=== PATIENT | female | born 1935 | race Caucasian/White ===

== ENCOUNTER → 2016-04-08 | Outpatient (CLI) | payer OTHER ==
[~2016-04-08] MED LIST: ALEVE220 MG PO; HYDROCHLOROTHIA25 MG PO; MULTI VITAMIN1 EACH PO
== END | disposition home or self-care (01) ==
LOC: CDC 14:17
DX: Z01.810 Encounter for preprocedural cardiovascular examination (principal)
CPT/HCPCS: 93000

== ENCOUNTER 2016-04-16 07:57 | Day surgery (SDC) | payer OTHER ==
[~2016-04-16] VITALS: Ht 157.5 cm; Wt 72.5 kg
[2016-04-16 09:08] VITALS: BP 181/79
[2016-04-16 12:12] VITALS: BP 164/77
[2016-04-16 12:55] VITALS: BP 169/74
== END 2016-04-16 13:06 | disposition home or self-care (01) ==
LOC: SDC 07:57
PROC: 0JBG3ZZ Excision of Right Lower Arm Subcutaneous Tissue and Fascia, Percutaneous Approach (ICD-10-PCS; principal; 2016-04-16)
DX: L90.5 Scar conditions and fibrosis of skin (principal); M19.90 Unspecified osteoarthritis, unspecified site; Z87.891 Personal history of nicotine dependence
CPT/HCPCS: 88305; J0690; J3010

== ENCOUNTER 2017-01-05 17:10 | Emergency (ER) | payer OTHER ==
[~2017-01-05] VITALS: Ht 154.9 cm; Wt 72.7 kg
[2017-01-05 18:24] LABS: HEMATOCRIT 35.2 % (36.0-46.0); MCH 28.9 PG (29.0-34.0); MCV 87.6 FL (83-99); MEAN PLAT.VOLUME 9.7 uM^3 (9.5-12.4); PLATELET COUNT 173 K/uL (156-360); RBC DIS.WIDTH-CV 13.1 % (11.8-14.6); RBC DIS.WIDTH-SD 42.4 % (39-53); RED BLOOD COUNT 4.02 M/uL (3.80-5.20); WHITE BLOOD COUNT 15.8 K/uL (4.1-10.2)
[2017-01-05 18:35] LABS: CHLORIDE 99 mEq/L (99-109); POTASSIUM 3.1 mEq/L (3.7-5.4)
[2017-01-05 18:38] LABS: ANION GAP 13 MEQ/L (2-14)
[2017-01-05 18:40] LABS: GFR ESTIMATE (CALCULATED) 51 mL/min/
[2017-01-05 18:41] LABS: UREA NITROGEN (BUN) 32 mg/dL (9-23)
[2017-01-05 18:43] LABS: GLUCOSE 110 mg/dL (70-99); SODIUM 135 mEq/L (136-147)
[2017-01-05 18:48] LABS: ADD MIUA? YES; BILIRUBIN SMALL; BLOOD NEGATIVE; COLOR AMBER ((YELLOW)); GLUCOSE (STRIP) NEGATIVE; KETONES NEGATIVE; LEUKOCYTES MODERATE; NITRITE NEGATIVE; PROTEIN (STRIP) 30; SPECIFIC GRAVITY 1.025 (1.000-1.030); UROBILINOGEN 0.2 MG/DL (0.2-1.0)
[2017-01-05 18:54] LABS: BACTERIA NONE SEEN /HPF; EPITHELIAL CELLS RARE /HPF; GRANULAR CASTS 0-5 /LPF; HYALINE CASTS 0-5 /LPF; MUCUS TRACE /LPF; RED BLOOD CELLS 0-5 /HPF (0-5); WHITE BLOOD CELLS 40-50 /HPF (0-5)
[2017-01-05] MEDS ORDERED: LEVAQUIN500 MG PO (19:49)
[2017-01-05] MEDS ORDERED: TESSALON PERLE100 MG PO (19:49)
[2017-01-05 20:06] VITALS: BP 125/56
== END 2017-01-05 20:10 | disposition home or self-care (01) ==
LOC: EME 17:10
PROVIDERS: Physician Assistant
DX: J18.9 Pneumonia, unspecified organism (principal); N39.0 Urinary tract infection, site not specified; Z87.891 Personal history of nicotine dependence
CPT/HCPCS: 71020; 80048; 81003; 85027; 87086; 99281; 99283

== ENCOUNTER 2017-01-07 11:21 | Emergency (ER) | payer OTHER ==
[~2017-01-07] VITALS: Ht 154.9 cm; Wt 77.9 kg
[~2017-01-07 11:21] MED LIST changes: +LEVAQUIN500 MG PO; +TESSALON PERLE100 MG PO
[2017-01-07 13:30] LABS: EOSINOPHIL (%) 0.3 % (0-5); HEMATOCRIT 36.7 % (36.0-46.0); IMMATURE GRANULOCYTE (%) 1.3 % (0.0-0.7); IMMATURE GRANULOCYTE COUNT 0.2 K/uL; INSTRUMENT ABS NEUTROPHIL CT 9.5 K/uL; LYMPHOCYTE COUNT 1.1 K/uL (1.0-2.8); MCH 28.5 PG (29.0-34.0); MCHC 32.4 G/DL (30.0-36.0); MONOCYTE (%) 4.7 % (3-12); MONOCYTE COUNT 0.5 K/uL (0-0.8); NEUTROPHIL (%) 83.9 % (45-76); NEUTROPHIL COUNT 9.5 K/uL (1.8-6.4); PLATELET COUNT 208 K/uL (156-360); RBC DIS.WIDTH-CV 12.9 % (11.8-14.6); RBC DIS.WIDTH-SD 42.1 % (39-53); RED BLOOD COUNT 4.17 M/uL (3.80-5.20); WHITE BLOOD COUNT 11.3 K/uL (4.1-10.2)
[2017-01-07 13:37] LABS: CHLORIDE 102 mEq/L (99-109)
[2017-01-07 13:38] LABS: SODIUM 138 mEq/L (136-147)
[2017-01-07 13:41] LABS: ANION GAP 10 MEQ/L (2-14)
[2017-01-07 13:43] LABS: GFR ESTIMATE (CALCULATED) > 59 mL/min/; GLUCOSE 74 mg/dL (70-99)
[2017-01-07 13:44] LABS: UREA NITROGEN (BUN) 23 mg/dL (9-23)
[2017-01-07] MEDS ORDERED: FIORICET 50-301 EAC1 PO ×2 (14:59→15:09)
[2017-01-07 16:04] VITALS: BP 165/88
== END 2017-01-07 16:05 | disposition home or self-care (01) ==
LOC: EME 11:21
PROVIDERS: Emergency Medicine
DX: R51 Headache (principal); R53.1 Weakness; Z87.891 Personal history of nicotine dependence
CPT/HCPCS: 70450; 80048; 81003; 85025; 99281; 99284; J1885; J2765; J7030